=== PATIENT | female | born 2000 | race American Indian/Alaskan Native ===

== ENCOUNTER 2019-12-07 10:15 | Emergency (ER) | payer SELFPAY ==
[2019-12-07 11:25] LABS: Basophils % (Auto) 0.2 % (0.0-1.8); Hematocrit 34.2 % (30.3-42.9); Hemoglobin 11.1 gm/dl (10.1-14.3); Lymphocytes # (Auto) 1.3 K/mm3 (1.2-5.4); Mean Corpuscular HGB Conc 32 % (30-34); Mean Corpuscular Volume 82 fl (79-97); Monocytes # (Auto) 1.8 K/mm3 (0.0-0.8); Monocytes % (Auto) 9.6 % (0.0-7.3); Platelet Count 334 K/mm3 (140-440); Red Blood Count 4.19 M/mm3 (3.65-5.03); Red Cell Distribution Width 18.2 % (13.2-15.2)
[2019-12-07 11:49] LABS: Alanine Aminotransferase 12 units/L (7-56); Albumin 4.6 g/dL (3.9-5); BUN/Creatinine Ratio 9; Blood Urea Nitrogen 8 mg/dL (7-17); Calcium 10.1 mg/dL (8.4-10.2); Hemolysis Index 10
[2019-12-07] MEDS ORDERED: SODIUM CHLORIDE 0.9% 1000 ML 1,000 ML IV ONE (13:58)
[2019-12-07] MEDS ORDERED: MORPHINE 4 MG/1 ML INJ IV ONE (13:58)
[2019-12-07] MEDS ORDERED: ONDANSETRON 4 MG/2 ML INJ IV ONE (13:58)
[2019-12-07 14:35] LABS: Bacteria,Urine 2+ /HPF (Negative); Bilirubin,Urine NEG (Negative); Blood,Urine NEG (Negative); Color,Urine Yellow (Yellow); Mucus,Urine 3+ /HPF
[2019-12-07 14:36] VITALS: BP 126/79
[2019-12-07 14:36] LABS: HCG Qualitative,Urine Negative (Negative); WBC,Urine > 182.0 /HPF (0.0-6.0)
[2019-12-07] MEDS ORDERED: cefTRIAXone/NS 1 GM/50 ML 1 GM/50 ML BAG IV ONE (14:40)
--- NOTE | 2019-12-07 15:41 | Emergency Department Report ---
ED Abdominal Pain HPI - General Chief Complaint: Abdominal Pain Stated Complaint: BACK AND SIDE PAIN Time Seen by Provider: 12/07/19 13:50 Source: patient Mode of arrival: Wheelchair Limitations: No Limitations - History of Present Illness Initial Comments: Patient is a 19-year-old female presents emergency room with complaints of right lower quadrant abdominal pain and right flank pain that began 2 or 3 days ago. She has associated nausea and vomiting, subjective fever, urinary frequency. She denies any diarrhea, dysuria, vaginal discharge, vaginal irritation. she states that it hurts to lay flat on her back. She denies any past medical histor y or allergies to medications. She states her last menstrual cycle was 2 weeks ago. She denies any abdominal surgeries. Severity scale (0 -10): 10 - Related Data Previous Rx's Medication Instructions Recorded Last Taken Type Ondansetron [Zofran Odt] 4 mg PO Q8HR PRN #14 tab.rapdis 12/07/19 Unknown Rx cephALEXin [Keflex] 500 mg PO BID 10 Days #20 cap 12/07/19 Unknown Rx Allergies Allergy/AdvReac Type Severity Reaction Status Date / Time No Known Allergies Allergy Unverified 12/07/19 10:19 ED Review of Systems ROS: Stated complaint: BACK AND SIDE PAIN Other details as noted in HPI Comment: All other systems reviewed and negative ED Past Medical Hx - Past Medical History Previous Medical History?: No - Surgical History Past Surgical History?: No - Social History Smoking Status: Light Tobacco Smoker Substance Use Type: None - Medications Home Medications: Home Medications Medication Instructions Recorded Confirmed Last Taken Type Ondansetron [Zofran Odt] 4 mg PO Q8HR PRN #14 tab.rapdis 12/07/19 Unknown Rx cephALEXin [Keflex] 500 mg PO BID 10 Days #20 cap 12/07/19 Unknown Rx ED Physical Exam - General Limitations: No Limitations General appearance: alert, other (appears to be in moderate pain) - Head Head exam: Present: atraumatic, normocephalic - Eye Eye exam: Present: normal appearance - ENT ENT exam: Present: mucous membranes dry (mildly) - Respiratory Respiratory exam: Present: normal lung sounds bilaterally. Absent: respiratory distress, wheezes, rales, rhonchi, stridor, chest wall tenderness, accessory muscle use, decreased breath sounds, prolonged expiratory - Cardiovascular Cardiovascular Exam: Present: normal rhythm, tachycardia, normal heart sounds. Absent: systolic murmur, diastolic murmur, rubs, gallop - GI/Abdominal GI/Abdominal exam: Present: soft, tenderness (LLQ TTP, no RLQ TTP, no TTP at mcburneys, no child turners sign, no cullens sign ), normal bowel sounds. Absent: distended, guarding, rebound, rigid - Back Exam Back exam: Present: other (no tenderness elicited upon percussion of the CVAs, she states that the pain "feels like it is inside"). Absent: CVA tenderness (R), CVA tenderness (L) - Neurological Exam Neurological exam: Present: alert, oriented X3 - Psychiatric Psychiatric exam: Present: normal affect, normal mood - Skin Skin exam: Present: warm, dry, intact ED Course Vital Signs 12/07/19 12/07/19 10:19 14:25 Temperature 99.5 F Pulse Rate 113 H 115 H Respiratory 18 18 Rate Blood Pressure 124/77 126/79 [Right] O2 Sat by Pulse 100 96 Oximetry ED Medical Decision Making - Lab Data Result diagrams: 12/07/19 11:10 12/07/19 11:10 Lab Results 12/07/19 12/07/19 12/07/19 Range/Units 11:10 11:10 14:04 WBC 18.5 H (4.5-11.0) K/mm3 RBC 4.19 (3.65-5.03) M/mm3 Hgb 11.1 (10.1-14.3) gm/dl Hct 34.2 (30.3-42.9) % MCV 82 (79-97) fl MCH 26 L (28-32) pg MCHC 32 (30-34) % RDW 18.2 H (13.2-15.2) % Plt Count 334 (140-440) K/mm3 Lymph % (Auto) 7.0 L (13.4-35.0) % Sierra % (Auto) 9.6 H (0.0-7.3) % Eos % (Auto) 0.0 (0.0-4.3) % Baso % (Auto) 0.2 (0.0-1.8) % Lymph # 1.3 (1.2-5.4) K/mm3 Sierra # 1.8 H (0.0-0.8) K/mm3 Eos # 0.0 (0.0-0.4) K/mm3 Baso # 0.0 (0.0-0.1) K/mm3 Seg Neutrophils % 83.2 H (40.0-70.0) % Seg Neutrophils # 15.4 H (1.8-7.7) K/mm3 Sodium 142 (137-145) mmol/L Potassium 4.4 (3.6-5.0) mmol/L Chloride 104.6 (98-107) mmol/L Carbon Dioxide 19 L (22-30) mmol/L Anion Gap 23 mmol/L BUN 8 (7-17) mg/dL Creatinine 0.9 (0.7-1.2) mg/dL Estimated GFR > 60 ml/min BUN/Creatinine Ratio 9 % Glucose 106 H (65-100) mg/dL Calcium 10.1 (8.4-10.2) mg/dL Total Bilirubin 0.20 (0.1-1.2) mg/dL AST 17 (5-40) units/L ALT 12 (7-56) units/L Alkaline Phosphatase 69 (35-129) units/L Total Protein 7.5 (6.3-8.2) g/dL Albumin 4.6 (3.9-5) g/dL Albumin/Globulin Ratio 1.6 % Urine Color Yellow (Yellow) Urine Turbidity Cloudy (Clear) Urine pH 6.0 (5.0-7.0) Ur Specific [place] 1.016 (1.003-1.030) Urine Protein 30 mg/dl (Negative) mg/dL Urine Glucose (UA) Neg (Negative) mg/dL Urine Ketones Neg (Negative) mg/dL Urine Blood Neg (Negative) Urine Nitrite Neg (Negative) Urine Bilirubin Neg (Negative) Urine Urobilinogen 4.0 (<2.0) mg/dL Ur Leukocyte Esterase Lg (Negative) Urine WBC (Auto) > 182.0 H (0.0-6.0) /HPF Urine RBC (Auto) 24.0 (0.0-6.0) /HPF U Epithel Cells (Auto) 4.0 (0-13.0) /HPF Urine Bacteria (Auto) 2+ (Negative) /HPF Urine WBC Clumps 2+ /HPF Urine Mucus 3+ /HPF Urine HCG, Qual (Negative) 12/07/19 Range/Units 14:04 WBC (4.5-11.0) K/mm3 RBC (3.65-5.03) M/mm3 Hgb (10.1-14.3) gm/dl Hct (30.3-42.9) % MCV (79-97) fl MCH (28-32) pg MCHC (30-34) % RDW (13.2-15.2) % Plt Count (140-440) K/mm3 Lymph % (Auto) (13.4-35.0) % Sierra % (Auto) (0.0-7.3) % Eos % (Auto) (0.0-4.3) % Baso % (Auto) (0.0-1.8) % Lymph # (1.2-5.4) K/mm3 Sierra # (0.0-0.8) K/mm3 Eos # (0.0-0.4) K/mm3 Baso # (0.0-0.1) K/mm3 Seg Neutrophils % (40.0-70.0) % Seg Neutrophils # (1.8-7.7) K/mm3 Sodium (137-145) mmol/L Potassium (3.6-5.0) mmol/L Chloride (98-107) mmol/L Carbon Dioxide (22-30) mmol/L Anion Gap mmol/L BUN (7-17) mg/dL Creatinine (0.7-1.2) mg/dL Estimated GFR ml/min BUN/Creatinine Ratio % Glucose (65-100) mg/dL Calcium (8.4-10.2) mg/dL Total Bilirubin (0.1-1.2) mg/dL AST (5-40) units/L ALT (7-56) units/L Alkaline Phosphatase (35-129) units/L Total Protein (6.3-8.2) g/dL Albumin (3.9-5) g/dL Albumin/Globulin Ratio % Urine Color (Yellow) Urine Turbidity (Clear) Urine pH (5.0-7.0) Ur Specific [place] (1.003-1.030) Urine Protein (Negative) mg/dL Urine Glucose (UA) (Negative) mg/dL Urine Ketones (Negative) mg/dL Urine Blood (Negative) Urine Nitrite (Negative) Urine Bilirubin (Negative) Urine Urobilinogen (<2.0) mg/dL Ur Leukocyte Esterase (Negative) Urine WBC (Auto) (0.0-6.0) /HPF Urine RBC (Auto) (0.0-6.0) /HPF U Epithel Cells (Auto) (0-13.0) /HPF Urine Bacteria (Auto) (Negative) /HPF Urine WBC Clumps /HPF Urine Mucus /HPF Urine HCG, Qual Negative (Negative) - Radiology Data Radiology results: report reviewed CT ABDOMEN AND PELVIS WITH CONTRAST INDICATION: Right flank pain. Right and left lower quadrant pain. Elevated white blood cell count of 18,000. COMPARISON: No relevant prior imaging study available. TECHNIQUE: Axial, coronal and sagittal CT imaging of the abdomen and pelvis was performed after injection of 100 mL Omnipaque [address] scans at this location are performed using CT dose reduction for ALARA by means of automated exposure control. FINDINGS: LOWER CHEST: No significant abnormality. LIVER: No significant abnormality. BILIARY: No significant abnormality. PANCREAS: No significant abnormality. SPLEEN: No significant abnormality. ADRENALS: No significant abnormality. KIDNEYS AND URETERS: There is an indeterminate hypodensity located along the left upper renal pole laterally measuring 1.3 x 1.0 cm on image 23 of series 4. Another similar- appearing indeterminate hypodense lesion is seen posteriorly along the right upper renal pole measuring 1.4 x 1.1 cm on image 26 of series 4. No additional significant abnormality. GI TRACT: No significant abnormality of the stomach, small bowel or colon. Unremarkable appendix. PERITONEUM: A small amount of free fluid along the pelvis is likely physiologic. No free air. No fluid collection. LYMPH NODES: No significant adenopathy. VASCULATURE: No significant abnormality. URINARY BLADDER: No significant abnormality. REPRODUCTIVE ORGANS: Fluid distending the endometrial canal is likely physiologic. No additional significant abnormality. ADDITIONAL FINDINGS: None. SKELETAL SYSTEM: No significant abnormality. IMPRESSION: 1. No acute abnormality of the abdomen or pelvis. 2. Indeterminate bilateral renal lesions as above may represent cysts. A nonemergent renal ultrasound is recommended for further characterization. 3. Additional findings as above. Signer Name: Henrry Acosta MD Signed: 12/07/2019 4:44 PM Workstation Name: [id number] Transcribed By: PHILIP Dictated By: Henrry Acosta MD Electronically Authenticated By: Henrry Acosta MD Signed Date/Time: 12/07/19 1644 DD/ 1640 TD/TT: - Medical Decision Making Patient is a 19-year-old female presents emergency room with complaints of right lower quadrant abdominal pain and right flank pain that began 2 or 3 days ago. She has associated nausea and vomiting, subjective fever, urinary frequency. She denies any diarrhea, dysuria, vaginal discharge, vaginal irritation. she states that it hurts to lay flat on her back. She denies any past medical history or allergies to medications. She states her last menstrual cycle was 2 weeks ago. She denies any abdominal surgeries. vitals with tachycardia, otherwise normal. labs significant for WBC 18.5k. UA shows many WBCs and large leukocyte esterase. CT abd pelvis: 1. No acute abnormality of the abdomen or pelvis. 2. Indeterminate bilateral renal lesions as above may represent cysts. A nonemergent renal ultrasound is recommended for further characterization. 3. Additional findings as above. discussed all results with pt and advised she would need to see urologist. pt given 1L IVF, ceftriaxone, morphine and zofran. pt was feeling much better she states her pain has resolved. pt was able to tolerate PO intake while in the ED. pt given prescription for keflex and zofran. advised to please take medication as prescribed. Increase your fluid intake over the next several days. Please follow-up with a urologist. Please follow u p with a primary care doctor. Return to emergency room for any new or worsening symptoms including but not limited to fever, worsening abdominal pain, unable to tolerate by mouth intake. - Differential Diagnosis UTI, appendicitis, pyelonephritis, infected stone, renal abscess, colitis Critical care attestation.: If time is entered above; I have spent that time in minutes in the direct care of this critically ill patient, excluding procedure time. ED Disposition Clinical Impression: Flank pain, Renal lesion UTI (urinary tract infection) Qualifiers: Urinary tract infection type: acute cystitis Hematuria presence: with hematuria Qualified Code(s): N30.01 - Acute cystitis with hematuria Abdominal pain Qualifiers: Abdominal location: generalized Qualified Code(s): R10.84 - Generalized abdominal pain Leukocytosis Qualifiers: Leukocytosis type: unspecified Qualified Code(s): D72.829 - Elevated white blood cell count, unspecified Disposition: DC-01 TO HOME OR SELFCARE Is pt being admited?: No Does the pt Need Aspirin: No Condition: Stable Instructions: Urinary Tract Infection in Women (ED) Additional Instructions: please take medication as prescribed. Increase your fluid intake over the next several days. Please follow-up with a urologist. Please follow up with a primary care doctor. Return to emergency room for any new or worsening symptoms including but not limited to fever, worsening abdominal pain, unable to tolerate by mouth intake. Prescriptions: cephALEXin [Keflex] 500 mg PO BID 10 Days #20 cap Ondansetron [Zofran Odt] 4 mg PO Q8HR PRN #14 tab.rapdis PRN Reason: Nausea And Vomiting Referrals: PITO GALINDO MD [Staff Physician] - 2-3 Days RAFA DELANEY MD [Staff Physician] - 2-3 Days Forms: Work/School Release Form(ED) Time of Disposition: 17:11 Print Language: QATARI
--- NOTE | 2019-12-07 16:49 | Cat Scan Report ---
CT ABDOMEN AND PELVIS WITH CONTRAST INDICATION: Right flank pain. Right and left lower quadrant pain. Elevated white blood cell count of 18,000. COMPARISON: No relevant prior imaging study available. TECHNIQUE: Axial, coronal and sagittal CT imaging of the abdomen and pelvis was performed after inje ction of 100 mL Omnipaque [address] scans at this location are performed using CT dose re duction for ALARA by means of automated exposure control. FINDINGS: LOWER CHEST: No significant abnormality. LIVER: No significant abnormality. BILIARY: No significant abnormality. PANCREAS: No significant abnormality. SPLEEN: No significant abnormality. ADRENALS: No significant abnormality. KIDNEYS AND URETERS: There is an indeterminate hypodensity located along the left upper renal pole la terally measuring 1.3 x 1.0 cm on image 23 of series 4. Another similar-appearing indeterminate hypod ense lesion is seen posteriorly along the right upper renal pole measuring 1.4 x 1.1 cm on image 26 o f series 4. No additional significant abnormality. GI TRACT: No significant abnormality of the stomach, small bowel or colon. Unremarkable appendix. PERITONEUM: A small amount of free fluid along the pelvis is likely physiologic. No free air. No flui d collection. LYMPH NODES: No significant adenopathy. VASCULATURE: No significant abnormality. URINARY BLADDER: No significant abnormality. REPRODUCTIVE ORGANS: Fluid distending the endometrial canal is likely physiologic. No additional sign ificant abnormality. ADDITIONAL FINDINGS: None. SKELETAL SYSTEM: No significant abnormality. IMPRESSION: 1. No acute abnormality of the abdomen or pelvis. 2. Indeterminate bilateral renal lesions as above may represent cysts. A nonemergent renal ultrasound is recommended for further characterization. 3. Additional findings as above. Signer Name: Henrry Acosta MD Signed: 12/07/2019 4:44 PM Workstation Name: [id number]
== END 2019-12-07 17:24 | disposition home or self-care (01) ==
LOC: ED 10:15
DX: N39.0 Urinary tract infection, site not specified (principal); D72.89 Other specified disorders of white blood cells; N28.9 Disorder of kidney and ureter, unspecified; F17.200 Nicotine dependence, unspecified, uncomplicated
CPT/HCPCS: 36415; 74177; 80053; 81001; 81025; 85025; 87076; 87086; 87186; 96361; 96365; 96375; 99284; J0696; J2270; J2405; J7030; Q9967